=== PATIENT | female | born 2000 | race Caucasian/White ===

== ENCOUNTER → 2018-11-18 09:42 | Outpatient (CLI) | payer OTHER, SELFPAY ==
[2018-11-18 14:14] LABS: Free T3 3.3 pg/mL (2.18-3.98); T4 Free Direct 0.99 ng/dL (0.76-1.46); Thyroid Stim Hormone (TSH) 1.22 uIU/mL (0.358-3.74)
[2018-11-18 14:16] LABS: Hematocrit 42.6 % (37-47); Hemoglobin 14.2 g/dl (12.0-15.0); Mean Corp Hgb Conc 33.3 g/gl (32-36); Mean Corpuscular Hgb 30.2 pg (27.0-32.0); Mean Corpuscular Volume 90.6 fL (81-99); Mean Platelet Vol. 10.7 fl (6.2-12.0); Platelet Count 252 K/mm3 (150-450); RBC Distribution Width CV 12.7 % (11.6-14.6); RBC Distribution Width SD 41.9 fl (35.1-43.9); White Blood Count 5.7 K/mm3 (4.4-11.0)
[2018-11-18 14:18] LABS: Scan Indicated on CBC? Y/N NO
== END ==
PROVIDERS: Family Provider Family Medicine; PCP Family Medicine; Visit Provider Obstetrics & Gynecology
DX: R10.2 Pelvic and perineal pain (principal)
CPT/HCPCS: 36415; 83036; 84439; 84443; 84481; 85027

== ENCOUNTER → 2019-05-05 | Outpatient (CLI) | payer OTHER, SELFPAY ==
--- NOTE | 2019-05-05 14:41 | US_ITS ---
STUDY: ULTRASOUND BREAST - RIGHT REASON FOR EXAM: Female, 18 years old. TECHNIQUE: Axial and longitudinal images of the RIGHT breast were performed with a high resolution ultrasound transducer. COMPARISON: None. FINDINGS: RIGHT Breast: Ultrasound of both breasts reveals no evidence of any masses or cysts identified. There is a normal fibroglandular tissue no specific abnormality detected particularly in the lower half of the breasts. US/Breast Limited Unilateral IMPRESSION: Negative study : Electronically Signed: Elizabeth Simmons, at 14:05 EDT Tel , Service support ,
== END | disposition home or self-care (01) ==
PROVIDERS: Family Provider Family Medicine; PCP Family Medicine; Referring Provider Obstetrics & Gynecology; Visit Provider Obstetrics & Gynecology
DX: N63.23 Unspecified lump in the left breast, lower outer quadrant (principal); N64.4 Mastodynia
CPT/HCPCS: 76642

== ENCOUNTER → 2019-05-10 | Outpatient (CLI) | payer OTHER, SELFPAY ==
[2019-05-10 14:56] LABS: Hematocrit 44.7 % (37-47); Hemoglobin 15.3 g/dl (12.0-15.0); Mean Corp Hgb Conc 34.2 g/gl (32-36); Mean Corpuscular Hgb 28.9 pg (27.0-32.0); Mean Corpuscular Volume 84.3 fL (81-99); Mean Platelet Vol. 10.9 fl (6.2-12.0); Platelet Count 303 K/mm3 (150-450); RBC Distribution Width CV 12.1 % (11.6-14.6); RBC Distribution Width SD 36.5 fl (35.1-43.9); White Blood Count 5.3 K/mm3 (4.4-11.0)
[2019-05-10 15:00] LABS: Scan Indicated on CBC? Y/N NO
[2019-05-10 15:13] LABS: hCG Titer Quant., Serum < 1 mIU/mL (1-3)
[2019-05-10 15:17] LABS: Estradiol 52.9 pg/mL; Follicle Stimulating Hormone 3.9 mIU/mL; Free T3 3.5 pg/mL (2.18-3.98); Luteinizing Hormone 2.3 mIU/mL; T4 Free Direct 1.01 ng/dL (0.76-1.46); Thyroid Stim Hormone (TSH) 1.91 uIU/mL (0.358-3.74)
[2019-05-10 15:18] LABS: Progesterone Level 0.42 ng/mL (See Comment)
[2019-05-10 17:05] LABS: Chlamydia Trachomatis by PCR Negative (Negative); Neisserai gonorrhoeae by PCR Negative (Negative); Probe Check PASS; Sample Adequacy Control PASS; Specimen Processing Control PASS
[2019-05-10 21:00] LABS: Hemoglobin A1c 5.2 % (4.2-6.3)
== END | disposition home or self-care (01) ==
LOC: WOBLAB 11:58
PROVIDERS: Visit Provider Obstetrics & Gynecology
DX: N92.6 Irregular menstruation, unspecified (principal); N91.2 Amenorrhea, unspecified
CPT/HCPCS: 36415; 82670; 83001; 83002; 83036; 84144; 84403; 84439; 84443; 84481; 84702; 85027; 87491; 87591

== ENCOUNTER 2020-12-17 09:30 | Emergency (ER) | payer BC, SELFPAY ==
[2020-12-17 09:31] VITALS: BP 118/81; PULSE 118; RESP 18; TEMP 36.6; O2SAT 100; BMI 29.8
[2020-12-17 09:34] VITALS: BP 118/81; PULSE 118; RESP 18; TEMP 36.6; O2SAT 100
--- NOTE | 2020-12-17 09:38 | NURSING ---
NO OLD EKGS
--- NOTE | 2020-12-17 09:49 | EKG12_ITS ---
Test Reason : CP Blood Pressure : / mmHG Vent. Rate : 098 BPM Atrial Rate : 098 BPM P-R Int : 178 ms QRS Dur : 098 ms QT Int : 362 ms P-R-T Axes : 054 079 041 degrees QTc Int : 462 ms Normal sinus rhythm Normal ECG Confirmed by YENIFER PATRICK, NATHALIA ([id number]), videotape editor MILEY RAMIREZ ([id number]) on 12/20/2020 9:24:04 AM Referred By: CHAPIS Confirmed By:NATHALIA STREET MD
[2020-12-17 10:08] VITALS: O2SAT 100
[2020-12-17 10:15] LABS: Absolute Lymphocyte Count 1.85 X10^3/uL (0.83-4.51); Absolute Neutrophil Count 5.4 X10^3/uL (2.0-7.7); Basophil# 0.04 X10^3/uL; Basophil% 0.5 % (0-1); Eosinophils% 1.3 % (0-5); Hematocrit 42.1 % (37-47); Hemoglobin 13.8 g/dL (12.0-15.0); Lymphocyte # 1.85 X10^3/ul (4.0); Lymphocyte % 23.7 % (19-41); Mean Corp Hgb Conc 32.8 g/dL (32-36); Mean Corpuscular Hgb 29.2 pg (27.0-32.0); Mean Corpuscular Volume 89.2 fL (81-99); Mean Platelet Vol. 10.4 fl (6.2-12.0); Monocyte# 0.39 X10^3/uL; NRBC Flagged by Analyzer 0 % (0-5); Neutrophil # 5.39 X10^3/uL (2.7-7.7); Neutrophil % 69.2 % (47-70); Platelet Count 339 K/mm3 (150-450); RBC Distribution Width CV 11.9 % (11.6-14.6); Red Blood Count 4.72 M/mm3 (4.2-5.4); White Blood Count 7.8 K/mm3 (4.4-11.0)
--- NOTE | 2020-12-17 10:20 | RAD_ITS ---
STUDY: X-RAY CHEST REASON FOR EXAM: Female, 20 years old. CP AND SOB. PAIN INCREASES SLIGHTLY WITH DEEP BREATHING. POSITIVE COVID IN DEC. HX BICUSPID AORTIC VALVE REPAIR TECHNIQUE: PA and lateral views of the chest. COMPARISON: None. FINDINGS: EKG electrodes are seen. The lungs are clear and expanded. Pectus excavatum deformity. There is no demonstrated pleural abnormality. Normal size heart. Normal mediastinum and talya. Normal visualized pulmonary arteries. Normal visualized aortic arch and descending thoracic aorta. Normal visualized thoracic spine. Normal visualized ribs, clavicles, and shoulders. There is no demonstrated abnormality of the visualized soft tissue structures of the upper abdomen. RAD/Chest PA and Lateral IMPRESSION: Normal x-ray examination of the chest. Electronically Signed: Maximus Ascencio MD at 10:36 EST , Service support ,
[2020-12-17 10:28] LABS: D-Dimer Quantitative (DVT/PE) <= 0.27 FEU/ug/m (0.27-0.49)
[2020-12-17 10:32] LABS: Anion Gap 7 (5-15); BUN 14 mg/dL (7-18); BUN/Creat Ratio 17.5 RATIO (10-20); Calcium,Total 9.1 mg/dL (8.5-10.1); Chloride 104 mmol/L (98-107); EST Glomerular Filtration Rate 95 mL/min (>60); Est Glom Filt Rate - Afr Amer 115 mL/min (>60); Estimated Creatinine Clearance 103.26 ml/min; Glucose 113 mg/dL (74-106); Magnesium 2.2 mg/dL (1.6-2.6); Potassium 3.6 mmol/L (3.5-5.1); Sodium Level 137 mmol/L (136-145)
[2020-12-17 10:38] LABS: Internal QC Validated? YES +Cl - CLEAR BKGD; Pregnancy, Serum, hCG Quali. NEGATIVE Negative
--- NOTE | 2020-12-17 11:24 | ED.DCSUM_ITS ---
History of Present Illness Chief Complaint: Chest Pain Informant: Patient Narrative: Patient presenting for evaluation secondary to chest pain. Patient has an underlying history of coronavirus infection in October with convalescence. She also has a history of palpitations and a bicuspid aortic valve. Patient states that intermittently she will have issues with chest pain and palpitations associated with her pre-existing conditions, but today this seems somewhat worse. Patient reports that she had a significant amount of central chest pain that was associated with worsening with taking a deep breath as well as some lightheadedness. No real relieving factors associated with this. Patient denies any new infectious signs or symptoms such as fever cough nausea vomiting diarrhea. She denies any overlying skin changes. She denies any history of DVT or PE or any risk factors of such. Review of systems otherwise negative. Past Medical History - Allergies and Home Meds Allergies/Adverse Reactions: Allergies No Known Allergies Allergy (Verified 12/17/20 09:34) Primary Care Physician: Clem Mead MD [Primary Care Provider] - Prior records reviewed: Yes Past Medical History: - - Bicuspid aortic valve Smoking Status: Never smoker Alcohol: None Drugs: None Review of Systems All systems negative except as indicated General: Denies: Chills, Fever, Sweats Eyes: Denies: Visual changes - bilaterally, Diplopia ENT: Denies: Rhinorrhea, Sore throat Cardiovascular: Reports: Chest pain Respiratory: Denies: Dyspnea, Cough, Dyspnea on exertion Gastrointestinal: Denies: Abdominal pain, Nausea, Vomiting, Diarrhea, Melena, Hematochezia Genitourinary: Denies: Dysuria, Hematuria, Frequency Musculoskeletal: Denies: Back pain, Extremity Pain Skin: Denies: Rash, Wounds Neurological: Denies: Headache, Weakness, Numbness Physical Exam Vital Signs/Narrative: Vital Signs Temp Pulse Resp BP Pulse Ox 12/17/20 10:08 100 12/17/20 09:34 97.9 F 118 H 18 118/81 H 100 12/17/20 09:31 97.9 F 118 H 18 118/81 H 100 Inital Vital Signs reviewed: Yes General: Well nourished, Well developed, No Acute Distress Head: Normocephalic, Atraumatic Eyes: Perrl, EOMI ENT: Moist mucous membranes, No rhinorrhea Neck: Supple, Nontender Cardiovascular: Regular rate, Regular rhythm, Murmur, - - 2 out of 6 systolic Respiratory: No distress, CTA bilaterally, Chest nontender Abdomen: Soft, Nontender, Nondistended, Normal bowel sounds Back: Nontender, Normal Inspection Extremities: Nontender, No edema Skin: Normal color, No rash Neurological: Alert, Oriented x3, Cranial nerves II-XII grossly intact, Normal Strength, Normal Sensation Psychological: Normal affect, Normal Mood Diagnostic/Tx/Re-eval Chest X-Ray - ED: 2 View, Read by ED Physician, Normal Clinical Impression(s) from Imaging Studies Chest X-Ray 12/17/20 10:20 IMPRESSION: Normal x-ray examination of the chest. Electronically Signed: Maximus Ascencio MD at 10:36 EST , Service support , Laboratory Data 12/17/20 12/17/20 12/17/20 10:10 10:10 10:10 WBC 7.8 RBC 4.72 Hgb 13.8 Hct 42.1 MCV 89.2 MCH 29.2 MCHC 32.8 RDW Std Deviation 39.0 RDW Coeff of Rajiv 11.9 Plt Count 339 MPV 10.4 Immature Gran % (Auto) 0.300 Neut % (Auto) 69.2 Lymph % (Auto) 23.7 Garland % (Auto) 5.0 Eos % (Auto) 1.3 Baso % (Auto) 0.5 Absolute Neuts (auto) 5.4 Absolute Lymphs (auto) 1.85 Nucleated RBC % 0 D-Dimer Quant (PE/DVT) <= 0.27 Sodium 137 Potassium 3.6 Chloride 104 Carbon Dioxide 26.0 Anion Gap 7 BUN 14 Creatinine 0.80 Estim Creat Clear Calc 103.26 Est GFR (MDRD) Af Amer 115 Est GFR (MDRD) Non-Af 95 BUN/Creatinine Ratio 17.5 Glucose 113 H Calcium 9.1 Magnesium 2.2 Troponin I < 0.015 Serum , Qual 12/17/20 10:10 WBC RBC Hgb Hct MCV MCH MCHC RDW Std Deviation RDW Coeff of Rajiv Plt Count MPV Immature Gran % (Auto) Neut % (Auto) Lymph % (Auto) Garland % (Auto) Eos % (Auto) Baso % (Auto) Absolute Neuts (auto) Absolute Lymphs (auto) Nucleated RBC % D-Dimer Quant (PE/DVT) Sodium Potassium Chloride Carbon Dioxide Anion Gap BUN Creatinine Estim Creat Clear Calc Est GFR (MDRD) Af Amer Est GFR (MDRD) Non-Af BUN/Creatinine Ratio Glucose Calcium Magnesium Troponin I Serum , Qual NEGATIVE - EKG Initial EKG Interpretation: - - Sinus rhythm [address] segments normal T waves normal CT and QTc intervals no evidence of acute ischemia or arrhythmia. No evidence of WPW or Brugada morphology. - Medical Decision Making Patient presented secondary to chest pain. PA and lateral chest x-ray by my personal review as well as radiology is negative for acute process. EKG unremarkable. CBC chemistry troponin and D-dimer all found to be unremarkable. Patient's heart score is 0, she rules out for PE. She has no abnormal findings on the remainder of her work-up. Patient symptoms likely are associated with her underlying bicuspid aortic valve and heart palpitations that she is had the past. She was given reassurance and the patient was discharged. ED Disposition - Plan for ED Patient: Disposition: Home or Assisted Living Diagnosis: Chest pain Instructions: ED Chest Pain, Uncertain Cause Referrals: Clem Mead MD [Primary Care Provider] - As Needed
[2020-12-17 11:28] VITALS: BP 115/72; PULSE 77; RESP 16; O2SAT 100
== END 2020-12-17 11:40 | disposition home or self-care (01) ==
PROVIDERS: Emergency Provider Emergency Medicine; PCP Family Medicine
DX: R07.89 Other chest pain (principal); Q23.1 Congenital insufficiency of aortic valve; Z86.16 Personal history of COVID-19
CPT/HCPCS: 71046; 80048; 83735; 84484; 84703; 85025; 85379; 93005; 99285; A4216

== ENCOUNTER → 2021-04-15 13:33 | Outpatient (CLI) | payer BC, SELFPAY ==
--- NOTE | 2021-04-15 13:35 | US_ITS ---
STUDY: FIRST TRIMESTER OBSTETRICAL ULTRASOUND REASON FOR EXAM: Female, 20 years old viability --bleeding LMP: 02/26/2021. TECHNIQUE: Transvaginal TECHNICAL QUALITY: Adequate. PRIOR ULTRASOUND: None. FINDINGS: There is no demonstrated intrauterine gestational sac. There is no demonstrated yolk sac. The placenta is non-visualized. There is no demonstrated embryo ( pole). The estimated gestation age (EGA) by LMP is 6 weeks, 6 days. The estimated date of delivery (ABISAI) by LMP is 12/03/2021. The uterus measures 7.8 cm x 5.3 cm x 3.5. The endometrium measures 11.1 mm. There is no demonstrated uterine fibroid. The cervix is closed. The right ovary measures 3.7 cm x 2.6 cm x 1.3. There is no right ovarian cyst. There is no visualized right adnexal mass or complex lesion. The left ovary measures 2.5 cm x 2.8 cm x 1.6. There is no left ovarian cyst. There is no visualized left adnexal mass or complex lesion. There is no fluid in the cul de sac. US/Transvaginal w/Preg US IMPRESSION: No intrauterine gestational sac is seen. Thickened endometrium measuring 11.1 mm. Electronically Signed: Maximus Ascencio MD at 14:40 EDT , Service support ,
[2021-04-15 14:45] LABS: hCG Titer Quant., Serum 106 mIU/mL (1-3)
== END ==
PROVIDERS: PCP Family Medicine; Referring Provider Obstetrics & Gynecology; Visit Provider Obstetrics & Gynecology
DX: O02.1 Missed abortion (principal)
CPT/HCPCS: 36415; 76817; 84702; 86850; 86900; 86901

== ENCOUNTER → 2021-05-10 14:44 | Outpatient (CLI) | payer BC, SELFPAY ==
[2021-05-10 16:17] LABS: hCG Titer Quant., Serum < 1 mIU/mL (1-3)
== END ==
PROVIDERS: PCP Family Medicine; Referring Provider Obstetrics & Gynecology; Visit Provider Obstetrics & Gynecology
DX: O03.9 Complete or unspecified spontaneous abortion without complication (principal)
CPT/HCPCS: 36415; 84702

== ENCOUNTER 2022-05-25 10:00 | Outpatient (CLI) | payer BC, SELFPAY ==
[2022-05-25 10:08] VITALS: BMI 32.3
[2022-05-25 10:11] VITALS: TEMP 36.6; O2SAT 97
[2022-05-25 10:12] VITALS: BP 122/69; PULSE 102
--- NOTE | 2022-05-25 10:38 | OB.TRI.NOTE ---
HPI - General HPI Narrative ALEJANDAR DE LEON, is a 21 F at 37 weeks gestation who presents with leaking of fluid since yesterday. She reports feeling popping sensation and continues to have small gushes of fluid. Positive movement and occasional [place] jain. Maternal Data Information ABISAI Calculator Estimated Delivery Date Method Current WG Current Estimate 06/15/22 Manual 37w 0d PFSH PFSH Allergy/AdvReac Type Severity Reaction Status Date / Time No Known Allergies Allergy Verified 04/15/21 14:35 Family History (Updated 04/15/21 @ 14:36 by Sangeeta Blackburn) Grandmother Breast cancer Uterine cancer Pancreatic cancer Mother Ovarian cancer Social History (Updated 04/15/21 @ 14:37 by Sangeeta Blackburn) Smoking Status: Never smoker alcohol intake: never substance use type: does not use caffeine: Yes what type of physical activity do you participate in: none seatbelt use: always do you feel safe at home: Yes additional social history: - [place] History 1 Elective abortions Hx Para Spontaneous abortions Hx # Term Pregnancies Ectopic pregnancies Hx # Pregnancies Multiple births # of living children ROS Eyes Eyes: Denies blurry vision Cardiovascular Cardiovascular: Reports none; Denies chest pain at rest, chest pain with activity or dizziness Respiratory/Chest Respiratory/Chest: Denies cough or dyspnea Gastrointestinal Gastrointestinal: Reports none and other; Denies diarrhea or vomiting Genitourinary Genitourinary: Denies dysuria Musculoskeletal Musculoskeletal: Reports none Integumentary Integumentary: Reports none; Denies rash Neurologic Neurologic: Denies dizziness, headache(s) or other visual disturbances Psychiatric Psychiatric: Reports none Physical Exam Const alert and no apparent distress General Appearance: cooperative Orientation / Consciousness: awake Exam Limitations: no limitations HEENT normocephalic Eyes General Eye: normal appearance of both eyes Neck full ROM Chest inspection of chest normal Resp normal respiratory effort and normal air movement Effort and Inspection: symmetric chest movement Auscultation: clear to auscultation bilaterally Cardio regular rate GI soft to palpation, non-tender and non-distended Inspection: and other Back/Spine normal ROM Extremity full ROM, normal capillary refill and no calf tenderness Skin no rashes or lesions noted Neuro oriented x3 and CN's II-XII intact bilaterally Psych mental status grossly normal NST FHR Rate Baby A Baseline: 145 Variability:: Moderate Accelerations:: 15 x 15 Decelerations:: None NST Reactive:: Yes FHR Category:: Category I Uterine Activity:: irritability Assessment & Plan (1) Leakage of amniotic fluid: (2) 37 weeks gestation of : PLAN: Plan ROM plus- negative CE- 50/-2 Cat. 1 tracing - NST reactive D/C home with follow up in office
[2022-05-25 10:53] LABS: ROM Internal Control Test YES-OK TO RESULT pt. (Internal QC); ROM Patient Test Negative (Negative)
== END 2022-05-25 11:11 | disposition home or self-care (01) ==
LOC: WPOUT 10:04 → WP 10:05
PROVIDERS: PCP Family Medicine; Visit Provider Advanced Practice Midwife
DX: O47.1 False labor at or after 37 completed weeks of gestation (principal); Z3A.37 37 weeks gestation of pregnancy
CPT/HCPCS: 59025; 59050; 84112; 99218; G0378

== ENCOUNTER 2022-05-28 23:59 | Inpatient (IN) | payer BC, SELFPAY ==
[2022-05-28 19:36] VITALS: TEMP 36.8; O2SAT 97
--- NOTE | 2022-05-28 19:38 | OB.TRI.NOTE ---
HPI - General General Date of Service: 05/28/22 Chief Complaint: r/o labor HPI Narrative ALEJANDRA DE LEON, is a 21 F @ 37.3 weeks who presents for contractions- q2-3 min since 5pm. denies VB, LOF. Maternal Data Information ABISAI Calculator Estimated Delivery Date Method Current WG Current Estimate 06/15/22 Manual 37w 3d PFSH PFSH Allergy/AdvReac Type Severity Reaction Status Date / Time No Known Allergies Allergy Verified 04/15/21 14:35 Family History (Updated 04/15/21 @ 14:36 by Sangeeta Blackburn) Grandmother Breast cancer Uterine cancer Pancreatic cancer Mother Ovarian cancer Social History (Updated 04/15/21 @ 14:37 by Sangeeta Blackburn) Smoking Status: Never smoker alcohol intake: never substance use type: does not use caffeine: Yes what type of physical activity do you participate in: none seatbelt use: always do you feel safe at home: Yes additional social history: - [place] History 1 Elective abortions Hx Para Spontaneous abortions Hx # Term Pregnancies Ectopic pregnancies Hx # Pregnancies Multiple births # of living children Physical Exam Narrative /- NST FHR Rate Baby A Baseline: 145 Variability:: Moderate Accelerations:: 15 x 15 Decelerations:: None NST Reactive:: Yes FHR Category:: Category I Uterine Activity:: 2-3 min Assessment & Plan (1) Uterine contractions: (2) 37 weeks gestation of : PLAN: Plan @ 37.3 weeks, early labor will monitor and recheck in 2 hrs or sooner to check for cervical change monitor FHR/toco if making cervical change will admit to L&D
[2022-05-28 19:39] VITALS: PULSE 97; O2SAT 97
[2022-05-28 19:40] VITALS: BP 125/83; PULSE 98
[2022-05-28 20:52] VITALS: BMI 32.3
[2022-05-29] VITALS (15 sets, daily range): BP systolic 106–140; BP diastolic 61–83; PULSE 82–105; RESP 14–16; TEMP 36.1–36.9; O2SAT 97
[2022-05-29 00:43] LABS: Absolute Lymphocyte Count 1.25 X10^3/uL (0.83-4.51); Absolute Neutrophil Count 18.3 X10^3/uL (2.0-7.7); Basophil# 0.05 X10^3/uL; Basophil% 0.2 % (0-1); Hematocrit 34.5 % (37-47); Hemoglobin 11.6 g/dL (12.0-15.0); Lymphocyte # 1.25 X10^3/ul (0.83-4.51); Lymphocyte % 6.1 % (19-41); Mean Corp Hgb Conc 33.6 g/dL (32-36); Mean Corpuscular Hgb 28.9 pg (27.0-32.0); Mean Corpuscular Volume 85.8 fL (81-99); Mean Platelet Vol. 11.2 fl (6.2-12.0); Monocyte# 0.64 X10^3/uL; Monocyte% 3.1 % (0-10); NRBC Flagged by Analyzer 0 % (0-5); Neutrophil # 18.32 X10^3/uL (2.7-7.7); Neutrophil % 89.8 % (47-70); Platelet Count 262 K/mm3 (150-450); RBC Distribution Width CV 12.6 % (11.6-14.6); RBC Distribution Width SD 39.1 fl (35.1-43.9); Red Blood Count 4.02 M/mm3 (4.2-5.4); White Blood Count 20.4 K/mm3 (4.4-11.0)
[2022-05-29] MEDS: Ondansetron 4 MG/2 ML Vial IV (01:07)
[2022-05-29] MEDS: LACTATED RINGERS 500 ML 999 ML IV (01:15)
[2022-05-29] MEDS: Lactated Ringers 1,000 ML 50 ML IV (01:16)
[2022-05-29] MEDS: Oxytocin 30 units/NS 500 ml 30 UNITS/500 ML IV.SOLN 334 UNITS IV (02:19)
--- NOTE | 2022-05-29 02:39 | HP.PCM.OB_ITS ---
HPI - General General Date of Admission: 05/28/22 Date of Service: 05/28/22 Chief Complaint: labor HPI Narrative ALEJANDRA DE LEON, is a 21 F @ 37+ weeks who presents in labor, was observation- made cervical change with SROM. Maternal Data Information ABISAI Calculator Estimated Delivery Date Method Current WG Current Estimate 06/15/22 Manual 37w 4d PFSH PFSH Allergy/AdvReac Type Severity Reaction Status Date / Time No Known Allergies Allergy Verified 05/29/22 00:44 Family History (Updated 04/15/21 @ 14:36 by Sangeeta Blackburn) Grandmother Breast cancer Uterine cancer Pancreatic cancer Mother Ovarian cancer Social History (Updated 04/15/21 @ 14:37 by Sangeeta Blackburn) Smoking Status: Never smoker alcohol intake: never substance use type: does not use caffeine: Yes what type of physical activity do you participate in: none seatbelt use: always do you feel safe at home: Yes additional social history: - [place] History 1 Elective abortions Hx Para 0 Spontaneous abortions Hx # Term Pregnancies Ectopic pregnancies Hx # Pregnancies Multiple births # of living children Vital Signs Vital Signs Vital Signs: 05/28/22 19:39 05/28/22 19:39 05/28/22 19:40 Temperature Temperature Source Pulse Rate 97 Blood Pressure 125/83 H BP Systolic 125 BP Diastolic 83 Pulse Ox 97 05/28/22 19:40 05/28/22 19:36 05/28/22 19:36 Temperature Temperature Source Temporal Pulse Rate 98 Blood Pressure BP Systolic BP Diastolic Pulse Ox 97 05/28/22 19:36 05/29/22 00:43 05/29/22 00:43 Temperature 98.2 F Temperature Source Pulse Rate 99 Blood Pressure 136/73 H BP Systolic 136 BP Diastolic 73 Pulse Ox 05/29/22 00:55 05/29/22 00:55 Temperature 97.0 F L Temperature Source Temporal Pulse Rate Blood Pressure BP Systolic BP Diastolic Pulse Ox Weight Weight: 90.9 kg Body Mass Index (BMI) 32.3 Physical Exam Const alert and oriented x3 General Appearance: cooperative HEENT normocephalic GI GI Narrative: Gravid, non tender to palpation. OB / External & Speculum: external exam normal Extremity normal to inspection Skin no rashes or lesions noted Neuro oriented x3 and CN's II-XII intact bilaterally Psych Appearance: grossly normal Labs Labs Labs: 2 Blood Type A POSITIVE Antibody Screen NEGATIVE Hct 34.5 % (37-47) L Hgb 11.6 g/dL (12.0-15.0) L Obstetrics US VZV IgG Antibody 283 index (Immune >165) Assessment & Plan (1) Active labor: (2) 37 weeks gestation of : (3) SROM (spontaneous rupture of membranes): PLAN: Plan Admit to L&D [place] FHR/TOCO Epidural if requested for pain Monitor VS Anticipate
--- NOTE | 2022-05-29 02:40 | EX.PCM.OBRPT ---
Maternal Data Information ABISAI Calculator Estimated Delivery Date Method Current WG Current Estimate 06/15/22 Manual 37w 4d Gestational age: 37.4 Vaginal Delivery Maternal Presentation Maternal Presentation: Active Labor and Spontaneous Rupture of Membranes Operative Information Date of Procedure: 05/29/22 Pre-Operative Diagnosis: active labor, 37 weeks, SROM Post-Operative Diagnosis: Same, live male Surgery / Procedure Performed: Spontaneous Vaginal Delivery Type of Anesthesia: None Special Medications: 1% lidocaine Estimated Blood Loss: 300 Time of Delivery: 02:02 Findings Description of Procedure: In at bedside pt pushing without epidural, Nitrous in use, head was at +2/+3 station- I left room to check on another patient- pt delivered, nurses present- state no dystocia, upon my arrival infant was on mothers chest, vigorous. Pt wished for delayed cord clamping until cord stopped pulsating. cord was then clamped and cut. 2nd degree perineal laceration appreciated. Pitocin was started- Placenta delivered with gentle traction intact. fundus firm. Lidocaine 1% 11cc injected and perineal laceration was repaired with 2-0 vicryl and 3-0 rapide Presentation: Vertex Amniotic Membrane Rupture Type: Spontaneous Amniotic Fluid Description: Clear Placental Delivery Description: Expressed Placenta Disposition: [facility] Specimen(s) Removed: placenta Cord Vessel Description: 3 Vessels Cord Entanglement: None A Gender: Male (1 minute): 8 (5 minute): 8 Delayed Cord Clamping: Yes Post Vaginal Delivery Medications Given After Delivery: IV Pitocin Episiotomy Description: None Laceration: Perineal Extension/lac and 2nd degree Complication Complications: None
[2022-05-29] MEDS: Acetaminophen 500 MG Tablet PO (03:07)
[2022-05-29] MEDS: Ibuprofen 600 MG Tablet PO ×2 (06:40→16:10)
[2022-05-29] MEDS: Acetaminophen 500 MG Tablet 1000 MG PO ×2 (11:56→21:24)
[2022-05-29] MEDS: Senna/Docusate Sodium 1 Tablet PO (16:13)
[2022-05-30 00:01] VITALS: BP 119/54; PULSE 80; RESP 17; TEMP 36.7; O2SAT 97
[2022-05-30 02:35] VITALS: BP 103/60; PULSE 85; RESP 16; TEMP 36.8; O2SAT 97
[2022-05-30] MEDS: Ibuprofen 600 MG Tablet PO ×2 (03:21→12:45)
--- NOTE | 2022-05-30 06:58 | PCM.PN.OB ---
Subjective Subjective Patient seen at bedside. Feeling good. Ambulating and voiding without difficulty. with minimal support. Desires discharge home today. Objective Data Objective Data Vital Signs: Vital Signs Temp Pulse Resp BP Pulse Ox O2 Del Method 98.3 F 85 16 103/60 97 Room Air 05/30/22 02:35 05/30/22 02:35 05/30/22 02:35 05/30/22 02:35 05/30/22 02:35 05/30/22 02:35 Oxygen Delivery Method Room Air Weight: 200 lb 6.4 oz Body Mass Index (BMI) 32.3 Intake & Output: Intake and Output for Last 24 Hours 05/28/22 05/29/22 05/30/22 23:59 23:59 23:59 Intake Total 1038.33 / 1038.33 Output Total 1200 / 1200 Balance -161.67 / -161.67 Lab / Micro Data Result Diagrams: 05/29/22 00:25 Micro: Microbiology 05/29/22 00:25 Nasal Secretion SARS-CoV-2 Antigen (Rapid) - Final ROS Eyes Eyes: Denies blurry vision, change in vision or spots in vision ENT HEENT: Denies dizziness or headache(s) Cardiovascular Cardiovascular: Denies abdominal pain, chest pain or dyspnea Respiratory/Chest Respiratory/Chest: Denies cough, dyspnea, shortness of breath at rest or shortness of breath with exertion Gastrointestinal Gastrointestinal: Denies abdominal pain, diarrhea or vomiting Genitourinary Genitourinary: Denies change in urinary stream, difficulty urinating or dysuria Musculoskeletal Musculoskeletal: Reports none Integumentary Integumentary: Denies rash Neurologic Neurologic: Denies dizziness, headache(s), memory loss or weakness Physical Exam Const alert and no apparent distress General Appearance: cooperative and comfortable Exam Limitations: no limitations HEENT normocephalic Eyes General Eye: normal appearance of both eyes Neck full ROM General: normal visual inspection Chest Chest: symmetrical chest wall rise Resp normal respiratory effort and normal air movement Effort and Inspection: symmetric chest movement Auscultation: clear to auscultation bilaterally Cardio regular rate and regular rhythm GI normal to inspection, nondistended, normoactive bowel sounds Back/Spine normal ROM Extremity full ROM and no calf tenderness General Extremity: normal exam except as noted Skin no rashes or lesions noted Neuro CN's II-XII intact bilaterally Psych mental status grossly normal Assessment & Plan (1) (spontaneous vaginal delivery): (2) Care and examination of lactating mother: PLAN: Plan PPD 2 Routine care Pain control support D/C home with follow up in office
--- NOTE | 2022-05-30 07:00 | DCINST_ITS ---
Discharge Instructions Diet Discharge Diet: No restrictions Activity Discharge Activity: Return to Normal Activity May resume sexual activity in: 4-6 weeks Weight Bearing Status: Weight bearing as tolerated Dressing / Incision Call your doctor if you observe: Fever of 101 or Higher, Using more than 1 pad per hour, Chest pain, Calf discomfort and Uncontrolled pain Follow Up Care Please Follow Up With: Gisel England CNM When: 2 weeks virtual/ 6 weeks in office Test Results: Test results from this visit will be discussed in further detail at your follow- up appointment, if applicable. Discharge Plan Admission Admit Date/Time: 05/28/22 23:59 Primary Reason for Your Visit: Labor and Delivery Attending Provider: Florence Harris Primary Care Provider: Clem Mead Discharge Orders/Prescriptions Referrals / Follow Up: Clem Mead MD [Primary Care Provider] - Disposition Disposition (needs filled in before D/C Order can be placed): Home, Self Care
[2022-05-30 09:10] VITALS: BP 119/74; PULSE 87; RESP 16; TEMP 36.5
[2022-05-30] MEDS: Acetaminophen 500 MG Tablet 1000 MG PO (10:01)
[2022-05-30 12:36] VITALS: BP 129/72; PULSE 82; RESP 16; TEMP 36.6
== END 2022-05-30 14:00 | disposition home or self-care (01) | DRG 807 ==
LOC: WPOUT 05-29 00:06 → WP 05-29 00:06
PROVIDERS: Admitting Provider Obstetrics & Gynecology; PCP Family Medicine; Visit Provider Obstetrics & Gynecology
DX: O42.92 Full-term premature rupture of membranes, unspecified as to length of time between rupture and onset of labor (principal); Z37.0 Single live birth; O70.1 Second degree perineal laceration during delivery; Z3A.37 37 weeks gestation of pregnancy
CPT/HCPCS: 59025; 59050; 85025; 86850; 86900; 86901; 87426; 99218; J7120; G0378; J2405